=== PATIENT | male | born 1960 | race Two or more races ===

== ENCOUNTER 2025-01-26 22:34 | Emergency (ER) | payer MEDICAID, SELFPAY ==
[2025-01-26 22:34] VITALS: BMI 31.2
[2025-01-26 22:50] VITALS: BP 158/93; PULSE 102; RESP 16; TEMP 36.7; O2SAT 97
--- NOTE | 2025-01-26 22:50 | XR_ITS ---
Examination: CT abdomen and pelvis without contrast. Coronal 3-D reconstructions. Sagittal 2-D reconstructions. Date and time of exam:January 26, 2025 11:04 PM Comparison February 08, 2017 Indications: Hematuria and dysuria today CTDI: vol (mGy): 9.30 DLP: (mGycm): 565 Technique: Axial images of the abdomen have been obtained, 3 mm slice thickness Intravenous contrast material has not been administered. Low dose protocols were performed. One or more of the following dose reduction techniques were used; automated exposure control, adjustment of the mA and/or KV according to patient size, use of iterative reconstruction technique. Findings: No focal liver or splenic lesion Cholelithiasis No pancreatic mass Solid appearing mass in the upper pole right kidney 4.8 x 3.9 cm Right perinephric stranding No hydronephrosis or ureteral calculi No bowel obstruction or diverticulitis No blood in the urinary bladder Prostatomegaly AP dimension 5.6 cm Small fat-containing inguinal hernias Advanced disc narrowing at the lower 3 lumbar levels Impression: Recommend follow-up renal sonography or CT abdomen pelvis post intravenous contrast to confirm solid right renal tumor mass 4.8 cm Blood in the urinary bladder Significant prostatomegaly Cholelithiasis
--- NOTE | 2025-01-26 22:54 | PD.EDMALE ---
ED Male Genitalurinary RME/HPI General Chief complaint: Urogenital-Male Stated complaint: URINATING BLOOD Time Seen by Provider: 01/26/25 22:50 Arrival date/time: 01/26/25 22:34 64M with history of HTN and DM presents to ED with several days of dysuria/hematuria and feels like something is stuck, while urinating. Limitations: no limitations Related Data Home Medications ?Medication ?Instructions ?Recorded ?Confirmed simvastatin 10 mg tablet (Zocor) 10 mg PO HS #0 tabs 02/09/16 10/14/22 hydrochlorothiazide 25 mg tablet 25 mg PO DAILY 10/14/22 10/14/22 losartan 100 mg tablet 100 mg PO DAILY 10/14/22 10/14/22 metformin 500 mg tablet 500 mg PO BID 10/14/22 10/14/22 prednisone 20 mg tablet 20 mg PO DAILY 10/14/22 10/14/22 Previous Rx's ?Medication ?Instructions ?Recorded sulfamethoxazole 800 1 tab PO BID #21 tabs 10/24/22 mg-trimethoprim 160 mg tablet (Bactrim DS) Allergies Allergy/AdvReac Type Severity Reaction Status Date / Time No Known Allergies Allergy Verified 10/23/22 21:44 Review of Systems Review of Systems Systems Reviewed: All systems reviewed, normal except as documented Constitutional Constitutional: Reports system reviewed and no additional complaints, except as documented, Denies fever(s) and Denies headache(s) ENT Ears, Nose, Mouth, and Throat: Denies disequilibrium and Denies headache(s) Cardiovascular Cardiovascular: Reports system reviewed and no additional complaints, except as documented, Denies chest pain and Denies dyspnea Respiratory Respiratory: Reports system reviewed and no additional complaints, except as documented, Denies cough and Denies dyspnea Gastrointestinal Gastrointestinal: Reports system reviewed and no additional complaints, except as documented, Denies abdominal pain, Denies nausea and Denies vomiting Genitourinary Genitourinary: Reports as per HPI, Reports dysuria and Reports hematuria Neurologic Neurologic: Reports system reviewed and no additional complaints, except as documented, Denies confusion, Denies disequilibrium and Denies headache(s) Psychiatric Psychiatric: Denies confusion Past Medical History Past Medical History CARDIAC: Negative Congestive Heart Failure RESPIRATORY: Negative Chronic Obstructive Pulmonary Disease (COPD) GENITOURINARY: Negative Renal Disease ENDOCRINE: Positive Diabetes Mellitus Type 2; Negative Diabetes Mellitus Type 1 Social History SMOKING STATUS: Never smoker ED Exam General Limitations: Present no limitations General appearance: Present alert and in no apparent distress Head Head exam: Present atraumatic Eye Eye exam: Present normal appearance, PERRL and EOMI ENT ENT exam: Present normal exam, normal oropharynx and mucous membranes moist Neck Neck exam: Present normal inspection, full ROM and trachea midline Chest Chest inspection: Present normal inspection and symmetric chest wall rise Respiratory Respiratory exam: Present normal lung sounds bilaterally Cardiovascular Cardiovascular exam: Present regular rate, normal rhythm and normal heart sounds Abdominal Exam Abdominal exam: Present soft and normal bowel sounds Extremities Exam Extremities exam: Present normal inspection and full ROM Back Exam Back exam: Present normal inspection and full ROM Neurological Exam Neurological exam: Present alert, oriented X3 and CN II-XII intact Psychiatric Psychiatric exam: Present normal affect and normal mood Skin Skin exam: Present warm, dry, intact and normal color Course Quality Measures none Orders Category Date Time Status CT abdomen pelvis wo con Stat Exams 01/26/25 22:50 Completed CBC Stat Lab 01/27/25 00:45 Completed CMP [Comprehensive Metabolic Panel] Stat Lab 01/27/25 00:45 Completed Urinalysis, C/S if Indicated Stat Lab 01/26/25 23:10 Completed Vital Signs Vital signs: Vital Signs Temperature 98.1 F 01/26/25 22:50 Pulse Rate 102 H 01/26/25 22:50 Respiratory Rate 16 01/26/25 22:50 Blood Pressure 158/93 H 01/26/25 22:50 Pulse Oximetry (%) 97 01/26/25 22:50 Oxygen Delivery Method Room Air 01/26/25 22:50 O2 at 97% on RA and WNLs Urogenital - Male MDM Narrative MDM Narrative:: 64M with history of HTN and DM presents to ED with several days of dysuria/hematuria and feels like something is stuck, while urinating. Physical exam reveals no flank/ab tenderness. Patient is afebrile, calm, and alert. CT reveals R renal tumor. UA only blood. No leukocytosis or anemia. CMP unremarkable. Patient reveals strong family history of kidney cancer. Counseled to see PCP for additional evaluation including biopsy and referrals. Patient data External records reviewed:: [facility] previous records Clinical information provided by:: patient Social determinants that could affect healthcare access:: none Patient has the following chronic illnesses:: DM and HTN How is presenting disease/condition affected by chronic disease/condition?: exacerbated by Evaluation data The following diagnostics were reviewed and interpreted by me:: lab results and radiology exam(s) Lab and/or radiology exams considered but not ordered:: ordered Interpretation Summary: above Medications / Prescriptions Medications or Prescriptions considered but not ordered:: not ordered Medication administrations:: n/a Consultations Consultation(s) initiated? (list below): No Diagnosis Urogenital Male Differential Diagnosis: urinary tract infection, priapism, urethritis, epididymitis, genital herpes simplex, prostatitis, acute retention of urine, inguinal hernia and other (kidney stone, bladder cancer) Most likely diagnosis given after review of the tests above:: renal mass Admission Indicated Admission indicated?: not indicated Admission Request Was there a request for admission?: No Disposition Plan Disposition Plan: Discharge Discharge Attestation Discharge Attestation: The patient and all family members were given an opportunity to ask questions and understood the discharge instructions. Discharge instructions specifically effects, indications for sooner follow up or return to the emergency department, and the expected course of current diagnosis. Patient condition: Stable Discharge Plan Plan Patient Disposition: HOME (Self Care) Prescriptions/Referrals Prescriptions/Med Rec: No Action simvastatin [Zocor] 10 MG tablet 10 mg PO HS Qty: 0 metformin 500 mg tablet 500 mg PO BID hydrochlorothiazide 25 mg tablet 25 mg PO DAILY losartan 100 mg tablet 100 mg PO DAILY prednisone 20 mg tablet 20 mg PO DAILY Patient Comments: take 1 tablet by mouth once daily for 6 days sulfamethoxazole-trimethoprim [Bactrim DS] 800-160 mg tablet 1 tab PO BID Qty: 21 0RF Referrals: No Primary/Family,Physician [Primary Care Provider] - In 1 week Problem List Clinical Impression: Kidney mass Patient/Caregiver Discharge Instructions Additional Instructions: Please follow-up with PCP within 24-48 hours and return immediately if symptoms worsen. Follow-up with PCP for additional imaging and/or biopsy and/or referral. Print Language: Georgian Stand Alone Forms: Patient Portal Info Letter
[2025-01-26 23:28] LABS: Collection Type, Urine Clean Catch; Squamous Epithelial Cell,Urine 0 /hpf (0-5)
[2025-01-27 00:21] LABS: Bilirubin,Urine Negative (Negative); Blood,Urine 3+ (Negative); Clarity,Urine Turbid (Clear/Hazy); Color,Urine Red (Lt Yel-Yel); Culture Indicated,Urine Not Indicated; Glucose, Urine Negative (Negative); Ketones,Urine Negative (Negative); Leukocyte Esterase,Urine Negative (Negative); Nitrite,Urine Negative (Negative); PH,Urine 6.5 (5.0-7.0); Protein,Urine 3+ (Neg - Trace); RBC,Urine 90 /hpf (0-3); Specific Gravity,Urine 1.021 (1.001-1.035); Urobilinogen,Urine Negative mg/dL (0.0-1.0); WBC,Urine 2 /hpf (0-5)
[2025-01-27 00:52] LABS: Basophils % (Auto) 0 % (0-2.5); Eosinophils # (Auto) 0.3 Thou/mm3 (0.0-0.5); Eosinophils % (Auto) 2 % (0-10); Hematocrit 43.8 % (41.0-53.0); Hemoglobin 15.4 g/dL (13.5-16.0); Immature Granulocytes % (Auto) 0 % (0-0); Immature Granulocytes Auto 0.02 Thou/mm3 (0.00-0.00); Lymphocytes # (Auto) 1.6 Thou/mm3 (1.0-4.8); Lymphocytes % (Auto) 14 % (10-50); Mean Corpuscular HGB Conc 35.2 g/dl (31.0-37.0); Mean Corpuscular Volume 88 fL (80-100); Monocytes # (Auto) 0.8 Thou/mm3 (0.0-0.8); Monocytes % (Auto) 7 % (0-12); Neutrophils # (Auto) 8.8 Thou/mm3 (1.8-7.7); Neutrophils % (Auto) 76 % (37-80); Nucleated Red Blood Cell % 0 /100 WBC (0); Platelet Count 281 Thou/mm3 (140-440); RDW Standard Deviation 41.4 fL (35.1-43.9); Red Blood Count 4.97 Miln/mm3 (4.50-5.90); White Blood Count 11.6 Thou/mm3 (3.8-10.6)
[2025-01-27 01:10] LABS: Alanine Aminotransferase 47 U/L (10-49); Albumin, Serum 5.3 gm/dL (3.4-4.8); Albumin/Globulin Ratio 1.8 (1.2-2.2); Alkaline Phosphatase 71 U/L (46-116); Anion Gap 11 (7-16); Aspartate Amino Transferase 33 U/L (0-34); BUN/Creatinine Ratio 18 Ratio (12-20); Bilirubin,Total 0.5 mg/dL (0.3-1.2); Blood Urea Nitrogen 20 mg/dL (9-23); Calcium 10.9 mg/dL (8.3-10.6); Calcium (Corrected) 10.9 mg/dL (8.5-10.1); Carbon Dioxide 24.2 mMol/L (20.0-31.0); Chloride 107 mMol/L (98-107); Creatinine (Component) 1.1 mg/dL (0.6-1.3); Estimated Creatinine Clearance 82.1 mL/min (>60); Glucose 120 mg/dL (74-106); Osmolality,Calculated 286 (275-295); Potassium 3.4 mMol/L (3.4-5.1); Sodium 142 mMol/L (136-145); Total Protein 8.3 gm/dL (5.7-8.2); eGFR > 60 See Note
== END 2025-01-27 01:25 | disposition home or self-care (01) ==
PROVIDERS: Physician Assistant; Emergency Provider Emergency Medicine
DX: N28.89 Other specified disorders of kidney and ureter (principal); E11.9 Type 2 diabetes mellitus without complications; I10 Essential (primary) hypertension
CPT/HCPCS: 36415; 74176; 80053; 81001; 85025; 99284

== ENCOUNTER 2025-03-02 08:35 | Outpatient (RCR) | payer MEDICAID, SELFPAY ==
--- NOTE | 2025-03-02 12:32 | CTCCONSULT_ITS ---
Patient: CHICHO GUTIERREZ : 1960 MR#: [id number] Page 2 of 2 CONSULTATION NOTE DATE OF CONSULTATION: 03/02/2025 NAME: CHICHO GUTIERREZ ACCOUNT: [id number] : 1960 AGE: 64 REFERRING PHYSICIAN: Laurent Baum MD PRIMARY PHYSICIAN: Angel Jin MD REASON FOR VISIT: ONCOLOGY HISTORY: DIAGNOSIS: DATE OF DIAGNOSIS: STAGE/TNM: TREATMENT HISTORY: Care?Plan Start?Date Cycle Day Intent HISTORY OF PRESENT ILLNESS: Chief Complaint Right-sided kidney and pelvic pain with sharp pain moving to the groin area, blood in the urine History of Present Illness Chicho Gutierrez, a patient with a family history of kidney cancer, presents for evaluation of a recently discovered kidney mass. The patient reports experiencing sharp pain in the right side of the kidney and pelvic area, which occasionally radiates to the groin. He denies any burning sensation or diffi culty emptying his bladder. Mr. Gutierrez has a significant family history of kidney cancer, with four out of his six siblings having been diagnosed with the condition. One of his siblings from kidney cancer after a complex course involving partial kidney removal, dialysis, and eventual metastasis. The patient himself is scheduled to see urology. The patient reports a history of smoking for 8-10 years, less than a pack a day. He is also a recovering drug addict, specifically from methamphetamine use, and has been clean for 26 years. Mr. Gutierrez denies current alcohol use. In terms of urinary symptoms, the patient reports experiencing blood in the urine. He previously had issues with a large prostate but states that it is now under control with medication. Medical History - Kidney cancer, recently diagnosed - Benign prostatic hyperplasia, resolved with medication - Methamphetamine addiction, in recovery for 26 years Surgical History - Nephrectomy (kidney removal) for kidney cancer Medications and Supplements - Medication for large prostate - Resolved prostate issue Family History - Siblings: 6 total (including patient) - Siblings: 4 had kidney cancer - Sibling: One from kidney cancer, born with one kidney - Sister: Lashawn, present during the visit Social History - Substance Use: Former smoker (8-10 years, less than 1 pack/day); former methamphetamine user (clean for 26 years); no current alcohol use - Diet: Advised to adopt a plant-based diet, reduce red meat intake, increase water consumption, and eat more vegetables, fruits, and white meat - Exercise: Advised to engage in regular exercise, including 20-30 minutes of daily walking Review of Systems General: Negative for fever, chills, fatigue, muscle aches, appetite or weight changes. Genitourinary: Positive for sharp pain in right kidney and pelvic area, pain moving to groin area. Negative for burning sensation, difficulty emptying bladder. Neurological: Negative for headache, dizziness. OTHER MEDICAL HISTORY/CONDITIONS: Diabetes HTN Hyperlipidemia BPH Appendectomy?-?4yrs?ago? 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 Tobacco Use:?Quit - 25yrs - Smoked 5-6yrs less than 1 PPD ETOH Use:?Quit 25yrs ago - Meth daily for 8 yrs Drug?Note:?Socially Social?History?Note:?Lives?wtih? MEDICATIONS: 1. amlodipine - 10 mg 1 tab Daily 2. aspirin - 81 mg 1 tab Daily 3. Calcium Citrate + D with Mag - 507-61-1-125 zj-zl-ar-unit 1 tab Daily 4. hydrochlorothiazide - 25 mg 1 tab Daily 5. losartan - 100 mg 1 tab Daily 6. meloxicam - 15 mg 1 tab Daily 7. metFORMIN - 500 mg 1 tab Daily 8. simvastatin - 10 mg 1 tab Daily 9. tamsulosin - 0.4 mg 1 Capsule Daily Medications Last Reconciled by Lenore Briceno RN on 03/02/2025 ALLERGIES: No Known Drug Allergies REVIEW OF SYSTEMS: A complete 14-point review of systems was performed and is negative except as noted in interval history. PHYSICAL EXAMINATION: VITAL SIGNS: Temperature?98.9, B/P?160/69, Height?70.5?inches, Oxygen?Saturation?99% Weight?215?lbs PAIN: 0 - No pain ECOG Performance Status: 0 - Asymptomatic and fully active GENERAL APPEARANCE: Appears well, in no apparent distress, appropriately interactive. HEENT: Normocephalic, no temporal wasting, normal conjunctiva, no scleral icterus, normal hearing, lips without lesions, neck normal range of motion. CARDIOVASCULAR: Not assessed. PULMONARY: Normal respiratory effort, no respiratory distress or use of accessory muscles, speaking in full sentences, no tachypnea. EXTREMITIES: No pedal edema or cyanosis. SKIN: Normal skin appearance. NEUROLOGIC: Alert and oriented x4. PSHYCHIATRIC: Appropriate affect, mood normal, behavior normal, intact thought and speech. LABORATORY DATA: I have personally reviewed and interpreted each of the patient?s relevant lab tests, abnormal findings are below: Laboratory, Imaging, and Diagnostic Test Results - CT scan (01/26/2025): Solid mass in the upper pole of the right kidney, 4.8 by 3.9 cm - Urinalysis (01/26/2025): - Blood in urine: Positive - Protein in urine: Positive ASSESSMENT/PLAN: Chicho Gutierrez, male patient with family history of kidney cancer, presents with right-sided kidney and pelvic pain, and a 4.8 x 3.9 cm solid mass in the upper pole of the right kidney detected on CT scan. #1 Suspected Renal Cell Carcinoma Assessment: Patient presents with a 4.8 x 3.9 cm solid mass in the upper pole of the right kidney, detected on CT scan dated 01-26-2025. He reports sharp pain in the right side of the kidney and pelvic area, which radiates to the groin. There is a significant family history of kidney cancer, with 4 out of 6 siblings affected. The patient has a history of smoking (8-10 years, less than a pack a day) and past methamphetamine use (clean for 26 years), both of which are risk factors for kidney cancer. Urinalysis from 01-26-2025 showed hematuria and proteinuria, further supporting the suspicion of renal cell carcinoma. Given the clinical presentation, imaging findings, and family history, renal cell carci noma is the primary differential diagnosis. However, definitive diagnosis requires histopathological confirmation. Plan: - Order brain MRI to rule out metastasis - Order PET-CT scan for cancer staging - Order MRI of the kidney for detailed imaging of the mass - Refer patient to a higher-level center ([facility] or [place]) for specialist evaluation and possible nephrectomy - Order echocardiogram to assess cardiac function prior to potential surgery - Recommend increased water intake, plant-based diet with reduced red meat consumption, and regular exercise (20-30 minutes of walking daily) - Follow-up appointment in 4 weeks to review MRI and PET scan results - If cancer is confirmed and staged as 2 or 3, consider adjuvant immunotherapy post-surgery #2 Benign Prostatic Hyperplasia (BPH) Assessment: Patient reports a history of enlarged prostate, which was treated with medication. He currently denies any urinary symptoms, suggesting the condition is well-controlled. Plan: - Continue current BPH medication regimen (specific medication not mentioned in transcript) - Monitor for any recurrence of urinary symptoms ORDERS: Order # Description [id number] MRI + Brain + With W/O Contrast [id number] Initial PET/CT of Skull to Mid-Thigh [id number] Refer To: [id number] MD Follow Up 4 Week RETURN TO CLINIC: 4 weeks BILLING AND COMPLIANCE: I reviewed external records from providers outside my specialty as summarized above. I spent a total of 50 minutes on this patient?s care on the day of their visit excluding time spent related to any billed procedures. This time includes time spent with the patient as well as time spent documenting in the medical record, reviewing patients records and tests, obtaining history, placing orders, communicating with other healthcare professionals, counseling the patient, family or caregiver, and/or care coordination for the diagnoses above. Electronically Signed by: Petr Eddy MD T: 12:29 PM CC: PCP: Angel Jin Referring: Laurent Baum This document was completed utilizing speech recognition software. Grammatical errors, random word insertions, pronoun errors, and incomplete sentences are an occasional consequence of this system due to software limitations, ambient noise, and hardware issues. Any formal questions or concerns about the content, text or information contained within the body of this dictation should be directly addressed to the provider for clarification.
== END 2025-03-10 23:59 | disposition home or self-care (01) ==
LOC: SCTC 08:35
PROVIDERS: PCP Family Medicine; Referring Provider Family Medicine; Visit Provider Internal Medicine Hematology & Oncology
DX: N28.89 Other specified disorders of kidney and ureter (principal); R10.2 Pelvic and perineal pain; R31.9 Hematuria, unspecified; R80.9 Proteinuria, unspecified; N40.0 Benign prostatic hyperplasia without lower urinary tract symptoms; Z80.51 Family history of malignant neoplasm of kidney
CPT/HCPCS: 99213; G0463

== ENCOUNTER → 2025-03-26 | Outpatient (CLI) | payer MEDICAID, SELFPAY ==
--- NOTE | 2025-03-26 09:50 | XR_ITS ---
Examination: MRI abdomen with intravenous contrast TECHNIQUE: Multiple axial coronal MR abdomen images post intravenous ministration 19 cc gadolinium INDICATIONS: CT abdomen pelvis January 26, 2025 solid appearing mass upper pole right kidney 4.8 cm Date and time: March 26, 2025 1033 hours FINDINGS: No focal liver or splenic lesion No gallstones No pancreatic mass Enhancing upper pole right renal solid tumor mass 4.9 x 4.8 cm No tumor thrombus in the right renal vein or inferior vena cava No left renal mass lesion No ascites IMPRESSION: Upper pole enhancing right renal solid tumor mass 4.9 x 4.8 cm most consistent with renal cell carcinoma
--- NOTE | 2025-03-26 09:50 | XR_ITS ---
Examination: MRI pelvis with intravenous contrast TECHNIQUE: Multiple axial sagittal coronal MRI pelvis images post intravenous administration 19 cc gadolinium INDICATIONS: Solid tumor mass upper pole right kidney on CT abdomen pelvis January 26, 2025, staging Date and time: March 26, 2025 1033 hours FINDINGS: No common iliac and external iliac or common femoral lymphadenopathy No free fluid in the pelvis Prostatomegaly, mediolateral dimension 5.9 cm, suspicious for 3.9 cm nodule right lobe of the prostate Bladder intact IMPRESSION: Recommend transrectal prostate sonography follow-up to exclude large right prostate nodule
== END | disposition home or self-care (01) ==
PROVIDERS: PCP Family Medicine; Referring Provider Family Medicine; Visit Provider Family Medicine
DX: N28.89 Other specified disorders of kidney and ureter (principal); N42.89 Other specified disorders of prostate
CPT/HCPCS: 72196; 74182; A9579

== ENCOUNTER → 2025-04-16 | Outpatient (CLI) | payer MEDICAID, SELFPAY ==
--- NOTE | 2025-04-16 14:00 | ECHO_ITS ---
Transthoracic Echo Report Ht (in): 70 Wt (lb): 218 Exam Location: Echo Lab Status: Preadmit Cuff Setter: Jada Alamo Indications: Procedure Performed: BP: / HR: Technical Quality: Adequate MEASUREMENTS (Male / Female) Normal Values 2D ECHO LV Diastolic Diameter PLAX 3.9 cm 4.2 - 5.9 / 3.9 - 5.3 cm LV Systolic Diameter PLAX 2.4 cm IVS Diastolic Thickness 1.3 cm 0.6 - 1.0 / 0.6 - 0.9 cm LVPW Diastolic Thickness 1.1 cm 0.6 - 1.0 / 0.6 - 0.9 cm LV Relative Wall Thickness 0.6 LA Volume Index 23.4 cm?/m? 16 - 28 cm?/m? DOPPLER AV Peak Velocity 168.0 cm/s AV Peak Gradient 11.3 mmHg LVOT Peak Velocity 109.0 cm/s LVOT Peak Gradient 4.8 mmHg PV Peak Velocity 135.0 cm/s PV Peak Gradient 7.3 mmHg FINDINGS Left Ventricle Normal left ventricular size, wall thickness, systolic function with no obvious regional wall motion abnormalities.The ejection fraction is visually estimated at 65 %. Right Ventricle The right ventricle is normal in size and systolic function. The estimated right ventricular systolic pressure, 10 mmHg. Left Atrium The left atrium is normal by two-dimensional, color flow and Doppler imaging with no structural abnormalities, no thrombus formation present. Right Atrium The right atrium is normal by two-dimensional imaging, color flow and Doppler imaging with no structural abnormalities, no thrombus formation present. Atrial Septum The interatrial septum appears normal with no evidence of a shunt. Aorta The aorta is normal by two-dimensional, color flow and Doppler interrogation. Mitral Valve The mitral valve is normal by two-dimensional, color flow and Doppler interrogation. There is trace mitral regurgitation. Aortic Valve The aortic valve is trileaflet and normal by two-dimensional, color flow and Doppler interrogation. There is no significant aortic valve regurgitation. Tricuspid Valve The tricuspid valve is normal by two-dimensional, color flow and Doppler interrogation. There is trace tricuspid regurgitation. Pulmonic Valve The pulmonic valve is not well visualized. There is no significant pulmonic valve regurgitation. Vessels The pulmonary artery appears normal. The inferior vena cava pulmonary and hepatic veins appear normal. Pericardium The pericardium is normal by two-dimensional imaging. There is no significant pericardial effusion. CONCLUSIONS Indications: Kidney Cancer The transthoracic study is normal by two-dimensional, color flow imaging and Doppler interrogation. Normal left ventricular size and function. Approximate ejection fraction is 65%. Trace mitral and trace tricuspid regurgitation No wall motion abnormalities noted. Shaista Gonzalez (Electronically Signed) Final Date: 19 April 2025 17:03
== END | disposition home or self-care (01) ==
LOC: SDIM 13:44
PROVIDERS: PCP Family Medicine; Referring Provider Internal Medicine Hematology & Oncology; Visit Provider Internal Medicine Hematology & Oncology
DX: I08.1 Rheumatic disorders of both mitral and tricuspid valves (principal); C64.9 Malignant neoplasm of unspecified kidney, except renal pelvis
CPT/HCPCS: 93306

== ENCOUNTER 2025-04-26 10:16 | Outpatient (RCR) | payer MEDICAID, SELFPAY ==
--- NOTE | 2025-04-26 22:25 | CTCFLWUP_ITS ---
Patient: CHICHO GUTIERREZ : 1960 Page 4 of 5 FOLLOW UP NOTE DATE OF SERVICE: 04/26/2025 NAME: CHICHO GUTIERREZ ACCOUNT: [id number] : 1960 AGE: 64 INTERVAL HISTORY: Subjective: Chief Complaint Follow-up for stage one kidney cancer, delayed nephrectomy History of Present Illness Mr. Rehan Harrison presents for follow-up of stage one kidney cancer. He was initially seen two months ago for establishing care, at which time a brain MRI, PET-CT scan, kidney MRI, and echocardiogram were ordered, and a referral to [place] was made. The patient reports that he has not yet had his kidney cancer removed. He states that he has only completed an MRI of his abdomen since the last visit. His appointment at [facility] is not scheduled until September, which is causing a significant delay in his treatment. The patient mentions seeing a urologist about his bladder, who advised him to address the kidney issue first before returning for bladder concerns. The patient's kidney tumor measures 4.3 cm. He has not experienced any specific symptoms related to the cancer that he mentioned during this visit. The patient has not started any treatment to shrink the tumor, as no such option is available for his type of cancer at this stage. Review of Systems HEENT: Positive for mild headaches, blurry vision. Objective: Laboratory, Imaging, and Diagnostic Test Results - Brain MRI (February 2025) - PET-CT scan - MRI of the kidney - Echocardiogram - MRI of the abdomen - Kidney tumor size: 4.3 cm ONCOLOGY HISTORY: DIAGNOSIS: Renal cancer DATE OF DIAGNOSIS: 02/03/2024 STAGE/TNM: Stage 1 kidney cancer TREATMENT HISTORY: Care?Plan Start?Date Cycle Day Intent HISTORY OF PRESENT ILLNESS: Chief Complaint Right-sided kidney and pelvic pain with sharp pain moving to the groin area, blood in the urine History of Present Illness Chicho Gutierrez, a patient with a family history of kidney cancer, presents for evaluation of a recently discovered kidney mass. The patient reports experiencing sharp pain in the right side of the kidney and pelvic area, which occasionally radiates to the groin. He denies any burning sensation or diffi culty emptying his bladder. Mr. Gutierrez has a significant family history of kidney cancer, with four out of his six siblings having been diagnosed with the condition. One of his siblings from kidney cancer after a complex course involving partial kidney removal, dialysis, and eventual metastasis. The patient himself is scheduled to see urology. The patient reports a history of smoking for 8-10 years, less than a pack a day. He is also a recovering drug addict, specifically from methamphetamine use, and has been clean for 26 years. Mr. Gutierrez denies current alcohol use. In terms of urinary symptoms, the patient reports experiencing blood in the urine. He previously had issues with a large prostate but states that it is now under control with medication. Medical History - Kidney cancer, recently diagnosed - Benign prostatic hyperplasia, resolved with medication - Methamphetamine addiction, in recovery for 26 years Surgical History - Nephrectomy (kidney removal) for kidney cancer Medications and Supplements - Medication for large prostate - Resolved prostate issue Family History - Siblings: 6 total (including patient) - Siblings: 4 had kidney cancer - Sibling: One from kidney cancer, born with one kidney - Sister: Lashawn, present during the visit Social History - Substance Use: Former smoker (8-10 years, less than 1 pack/day); former methamphetamine user (clean for 26 years); no current alcohol use - Diet: Advised to adopt a plant-based diet, reduce red meat intake, increase water consumption, and eat more vegetables, fruits, and white meat - Exercise: Advised to engage in regular exercise, including 20-30 minutes of daily walking Review of Systems General: Negative for fever, chills, fatigue, muscle aches, appetite or weight changes. Genitourinary: Positive for sharp pain in right kidney and pelvic area, pain moving to groin area. Negative for burning sensation, difficulty emptying bladder. Neurological: Negative for headache, dizziness. 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 Tobacco Use:?Quit - 25yrs - Smoked 5-6yrs less than 1 PPD ETOH Use:?Quit 25yrs ago - Meth daily for 8 yrs Drug?Note:?Socially Social?History?Note:?Lives?wtih? MEDICATIONS: 1. amlodipine - 10 mg 1 tab Daily 2. aspirin - 81 mg 1 tab Daily 3. Calcium Citrate + D with Mag - 295-49-9-125 si-pq-qo-unit 1 tab Daily 4. hydrochlorothiazide - 25 mg 1 tab Daily 5. losartan - 100 mg 1 tab Daily 6. meloxicam - 15 mg 1 tab Daily 7. metFORMIN - 500 mg 1 tab Daily 8. simvastatin - 10 mg 1 tab Daily 9. tamsulosin - 0.4 mg 1 Capsule Daily Medications Last Reconciled by Shira Sarah MA on 04/26/2025 ALLERGIES: No Known Drug Allergies REVIEW OF SYSTEMS: A complete 14-point review of systems was performed and is negative except as noted in interval history. PHYSICAL EXAMINATION: VITAL SIGNS: Temperature?98, B/P?150/79, Oxygen?Saturation?97% Weight?214?lbs PAIN: 3 - Between mild and moderate pain ECOG Performance Status: 0 - Asymptomatic and fully active GENERAL APPEARANCE: Appears well, in no apparent distress, appropriately interactive. HEENT: Normocephalic, no temporal wasting, normal conjunctiva, no scleral icterus, normal hearing, lips without lesions, neck normal range of motion. CARDIOVASCULAR: Not assessed. PULMONARY: Normal respiratory effort, no respiratory distress or use of accessory muscles, speaking in full sentences, no tachypnea. EXTREMITIES: No pedal edema or cyanosis. SKIN: Normal skin appearance. NEUROLOGIC: Alert and oriented x4. PSHYCHIATRIC: Appropriate affect, mood normal, behavior normal, intact thought and speech. LABORATORY DATA: I have personally reviewed and interpreted each of the patient?s relevant lab tests, abnormal findings are below: Date ASSESSMENT/PLAN: Chicho Gutierrez, male patient with family history of kidney cancer, presents with right-sided kidney and pelvic pain, and a 4.8 x 3.9 cm solid mass in the upper pole of the right kidney detected on CT scan. #1 Suspected Renal Cell Carcinoma Assessment: Patient presents with a 4.8 x 3.9 cm solid mass in the upper pole of the right kidney, detected on CT scan dated 01-26-2025. He reports sharp pain in the right side of the kidney and pelvic area, which radiates to the groin. There is a significant family history of kidney cancer, with 4 out of 6 siblings affected. The patient has a history of smoking (8-10 years, less than a pack a day) and past methamphetamine use (clean for 26 years), both of which are risk factors for kidney cancer. Urinalysis from 01-26-2025 showed hematuria and proteinuria, further supporting the suspicion of renal cell carcinoma. Given the clinical presentation, imaging findings, and family history, renal cell carci noma is the primary differential diagnosis. However, definitive diagnosis requires histopathological confirmation. Biopsy or pathological diagnosis is needed in this case as it can lead to seeding and spread of cancer. Will wait for urology for surgery and staging based on imaging -MRI of the kidney revealed upper lobe mass and do not reveal any lymphadenopathy - Refer patient to a higher-level center ([facility] or [facility]) for specialist evaluation and possible nephrectomy-unfortunately patient underwent an event - Order echocardiogram to assess cardiac function prior to potential surgery- echo reviewed and is stable - Recommend increased water intake, plant-based diet with reduced red meat consumption, and regular exercise (20-30 minutes of walking daily) The tumor measures 4.3 cm. Clear cell cancer is suspected, but definitive diagnosis and staging require surgical removal of the tumor. There have been significant delays in obtaining surgical intervention, with the patient's appointment at [facility] not scheduled until September. The delay in treatment is concerning due to the potential for tumor growth. Plan: - Pursue urgent surgical intervention (nephrectomy) for tumor removal and definitive diagnosis - Advise patient to contact [facility] and [facility] daily to obtain an earlier surgical appointment - If unable to secure earlier appointment, instruct patient to present to emergency department for evaluation - Order brain MRI to rule out metastasis - Use mild headaches and blurry vision as indications to facilitate insurance approval - Explore potential for immunotherapy or ceritinib as post-surgical treatment options - Schedule follow-up appointment after surgical intervention to discuss pathology results and determine further management - Order brain MRI to rule out metastasis. Patient gives a history of headache. Need brain MRI to rule out mets - Order PET-CT scan for cancer staging-patient need to complete staging to rule out metastatic disease before being taken for surgery #2 Benign Prostatic Hyperplasia (BPH) Assessment: Patient reports a history of enlarged prostate, which was treated with medication. He currently denies any urinary symptoms, suggesting the condition is well-controlled. Plan: - Continue current BPH medication regimen (specific medication not mentioned in transcript) - Monitor for any recurrence of urinary symptoms ORDERS: Order # Description [id number] Follow Up 4 Week RETURN TO CLINIC: 4 weeks BILLING AND COMPLIANCE: I reviewed external records from providers outside my specialty as summarized above. I spent a total of 50 minutes on this patient?s care on the day of their visit excluding time spent related to any billed procedures. This time includes time spent with the patient as well as time spent documenting in the medical record, reviewing patients records and tests, obtaining history, placing orders, communicating with other healthcare professionals, counseling the patient, family or caregiver, and/or care coordination for the diagnoses above. Electronically Signed by: Petr Eddy MD T: 10:22 PM CC: PCP: Laurent Baum Referring: Laurent Baum This document was completed utilizing speech recognition software. Grammatical errors, random word insertions, pronoun errors, and incomplete sentences are an occasional consequence of this system due to software limitations, ambient noise, and hardware issues. Any formal questions or concerns about the content, text or information contained within the body of this dictation should be directly addressed to the provider for clarification.
== END 2025-05-10 23:59 | disposition home or self-care (01) ==
LOC: SCTC 10:16
PROVIDERS: PCP Family Medicine; Referring Provider Family Medicine; Visit Provider Internal Medicine Hematology & Oncology
DX: C64.1 Malignant neoplasm of right kidney, except renal pelvis (principal); Z80.51 Family history of malignant neoplasm of kidney; Z87.891 Personal history of nicotine dependence; N40.0 Benign prostatic hyperplasia without lower urinary tract symptoms
CPT/HCPCS: 99212; G0463

== ENCOUNTER 2025-06-02 15:53 | Outpatient (RCR) | payer MEDICAID, SELFPAY ==
--- NOTE | 2025-06-07 06:24 | CTCFLWUP_ITS ---
Patient: CHICHO GUTIERREZ : 1960 Page 4 of 5 FOLLOW UP NOTE DATE OF SERVICE: 06/02/2025 NAME: CHICHO GUTIERREZ ACCOUNT: [id number] : 1960 AGE: 64 INTERVAL HISTORY: Subjective: Chief Complaint Follow-up for stage one kidney cancer, delayed nephrectomy History of Present Illness Mr. Rehan Harrison presents for follow-up of stage one kidney cancer. He was initially seen two months ago for establishing care, at which time a brain MRI, PET-CT scan, kidney MRI, and echocardiogram were ordered, and a referral to [place] was made. The patient reports that he has not yet had his kidney cancer removed. He states that he has only completed an MRI of his abdomen since the last visit. His appointment at [place] is not scheduled until September, which is causing a significant delay in his treatment. The patient mentions seeing a urologist about his bladder, who advised him to address the kidney issue first before returning for bladder concerns. The patient's kidney tumor measures 4.3 cm. He has not experienced any specific symptoms related to the cancer that he mentioned during this visit. The patient has not started any treatment to shrink the tumor, as no such option is available for his type of cancer at this stage. Patient was seen at [facility] and is being planned by Dr. gonzalez for right partial nephrectomy Patient is also planned for dedicated prostate MRI as was noted to have prostate nodule review of Systems HEENT: Positive for mild headaches, blurry vision. Objective: Laboratory, Imaging, and Diagnostic Test Results - Brain MRI (February 2025) - PET-CT scan - MRI of the kidney - Echocardiogram - MRI of the abdomen - Kidney tumor size: 4.3 cm ONCOLOGY HISTORY: DIAGNOSIS: Renal cancer DATE OF DIAGNOSIS: 02/03/2024 STAGE/TNM: Stage 1 kidney cancer TREATMENT HISTORY: Care?Plan Start?Date Cycle Day Intent HISTORY OF PRESENT ILLNESS: Chief Complaint Right-sided kidney and pelvic pain with sharp pain moving to the groin area, blood in the urine History of Present Illness Chicho Gutierrez, a patient with a family history of kidney cancer, presents for evaluation of a recently discovered kidney mass. The patient reports experiencing sharp pain in the right side of the kidney and pelvic area, which occasionally radiates to the groin. He denies any burning sensation or diffi culty emptying his bladder. Mr. Gutierrez has a significant family history of kidney cancer, with four out of his six siblings having been diagnosed with the condition. One of his siblings from kidney cancer after a complex course involving partial kidney removal, dialysis, and eventual metastasis. The patient himself is scheduled to see urology. The patient reports a history of smoking for 8-10 years, less than a pack a day. He is also a recovering drug addict, specifically from methamphetamine use, and has been clean for 26 years. Mr. Gutierrez denies current alcohol use. In terms of urinary symptoms, the patient reports experiencing blood in the urine. He previously had issues with a large prostate but states that it is now under control with medication. Medical History - Kidney cancer, recently diagnosed - Benign prostatic hyperplasia, resolved with medication - Methamphetamine addiction, in recovery for 26 years Surgical History - Nephrectomy (kidney removal) for kidney cancer Medications and Supplements - Medication for large prostate - Resolved prostate issue Family History - Siblings: 6 total (including patient) - Siblings: 4 had kidney cancer - Sibling: One from kidney cancer, born with one kidney - Sister: Lashawn, present during the visit Social History - Substance Use: Former smoker (8-10 years, less than 1 pack/day); former methamphetamine user (clean for 26 years); no current alcohol use - Diet: Advised to adopt a plant-based diet, reduce red meat intake, increase water consumption, and eat more vegetables, fruits, and white meat - Exercise: Advised to engage in regular exercise, including 20-30 minutes of daily walking Review of Systems General: Negative for fever, chills, fatigue, muscle aches, appetite or weight changes. Genitourinary: Positive for sharp pain in right kidney and pelvic area, pain moving to groin area. Negative for burning sensation, difficulty emptying bladder. Neurological: Negative for headache, dizziness. 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 Tobacco Use:?Quit - 25yrs - Smoked 5-6yrs less than 1 PPD ETOH Use:?Quit 25yrs ago - Meth daily for 8 yrs Drug?Note:?Socially Social?History?Note:?Lives?wtih? MEDICATIONS: 1. amlodipine - 10 mg 1 tab Daily 2. aspirin - 81 mg 1 tab Daily 3. Calcium Citrate + D with Mag - 644-01-9-125 st-pu-fk-unit 1 tab Daily 4. hydrochlorothiazide - 25 mg 1 tab Daily 5. losartan - 100 mg 1 tab Daily 6. meloxicam - 15 mg 1 tab Daily 7. metFORMIN - 500 mg 1 tab Daily 8. simvastatin - 10 mg 1 tab Daily 9. tamsulosin - 0.4 mg 1 Capsule Daily Medications Last Reconciled by Yuko Marcelino MA on 06/02/2025 ALLERGIES: No Known Drug Allergies REVIEW OF SYSTEMS: A complete 14-point review of systems was performed and is negative except as noted in interval history. PHYSICAL EXAMINATION: VITAL SIGNS: PAIN: 0 - No pain ECOG Performance Status: 0 - Asymptomatic and fully active GENERAL APPEARANCE: Appears well, in no apparent distress, appropriately interactive. HEENT: Normocephalic, no temporal wasting, normal conjunctiva, no scleral icterus, normal hearing, lips without lesions, neck normal range of motion. CARDIOVASCULAR: Not assessed. PULMONARY: Normal respiratory effort, no respiratory distress or use of accessory muscles, speaking in full sentences, no tachypnea. EXTREMITIES: No pedal edema or cyanosis. SKIN: Normal skin appearance. NEUROLOGIC: Alert and oriented x4. PSHYCHIATRIC: Appropriate affect, mood normal, behavior normal, intact thought and speech. LABORATORY DATA: I have personally reviewed and interpreted each of the patient?s relevant lab tests, abnormal findings are below: Date ASSESSMENT/PLAN: Chicho Gutierrez, male patient with family history of kidney cancer, presents with right-sided kidney and pelvic pain, and a 4.8 x 3.9 cm solid mass in the upper pole of the right kidney detected on CT scan. #1 Suspected Renal Cell Carcinoma Assessment: Patient presents with a 4.8 x 3.9 cm solid mass in the upper pole of the right kidney, detected on CT scan dated 01-26-2025. He reports sharp pain in the right side of the kidney and pelvic area, which radiates to the groin. There is a significant family history of kidney cancer, with 4 out of 6 siblings affected. The patient has a history of smoking (8-10 years, less than a pack a day) and past methamphetamine use (clean for 26 years), both of which are risk factors for kidney cancer. Urinalysis from 01-26-2025 showed hematuria and proteinuria, further supporting the suspicion of renal cell carcinoma. Given the clinical presentation, imaging findings, and family history, renal cell carci noma is the primary differential diagnosis. However, definitive diagnosis requires histopathological confirmation. Biopsy or pathological diagnosis is needed in this case as it can lead to seeding and spread of cancer. Will wait for urology for surgery and staging based on imaging -MRI of the kidney revealed upper lobe mass and do not reveal any lymphadenopathy - Refer patient to a higher-level center ([facility] or [place]) for specialist evaluation and possible nephrectomy-unfortunately patient underwent an event - Order echocardiogram to assess cardiac function prior to potential surgery- echo reviewed and is stable - Recommend increased water intake, plant-based diet with reduced red meat consumption, and regular exercise (20-30 minutes of walking daily) The tumor measures 4.3 cm. Clear cell cancer is suspected, but definitive diagnosis and staging require surgical removal of the tumor. There have been significant delays in obtaining surgical intervention, with the patient's appointment at [place] not scheduled until September. The delay in treatment is concerning due to the potential for tumor growth. Plan: - Pursue urgent surgical intervention (nephrectomy) for tumor removal and definitive diagnosis Patient is being planned for partial nephrectomy at [facility] as well as further workup for prostate nodule - Order brain MRI to rule out metastasis - Use mild headaches and blurry vision as indications to facilitate insurance approval - Explore potential for immunotherapy or ceritinib as post-surgical treatment options - Schedule follow-up appointment after surgical intervention to discuss pathology results and determine further management - Order brain MRI to rule out metastasis. Patient gives a history of headache. Need brain MRI to rule out mets - Order PET-CT scan for cancer staging-patient need to complete staging to rule out metastatic disease before being taken for surgery #2 Benign Prostatic Hyperplasia (BPH) Assessment: Patient reports a history of enlarged prostate, which was treated with medication. He currently denies any urinary symptoms, suggesting the condition is well-controlled. Plan: - Continue current BPH medication regimen (specific medication not mentioned in transcript) Will wait for the results of MRI prostate as will be completed at [facility] ORDERS: Order # Description [id number] Follow Up 4 Week [id number] Comprehensive Metabolic Panel - 12 + CBC with Auto Diff RETURN TO CLINIC: I reviewed the diagnosis, prognosis, and recommended treatment/procedure options with the patient (and/or their legal sales representative business courses), including the potential benefits, risks, side effects and alternative therapies. We also discussed the option of no treatment and the possibility of clinical trial participation, if applicable. All questions were addressed, and they demonstrated understanding. They provided informed consent to proceed with the proposed plan of care. BILLING AND COMPLIANCE: I reviewed external records from providers outside my specialty as summarized above. I spent a total of 50 minutes on this patient?s care on the day of their visit excluding time spent related to any billed procedures. This time includes time spent with the patient as well as time spent documenting in the medical record, reviewing patients records and tests, obtaining history, placing orders, communicating with other healthcare professionals, counseling the patient, family or caregiver, and/or care coordination for the diagnoses above. Electronically Signed by: Petr Eddy MD T: 6:22 AM CC: PCP: Laurent Baum Referring: Laurent Baum This document was completed utilizing speech recognition software. Grammatical errors, random word insertions, pronoun errors, and incomplete sentences are an occasional consequence of this system due to software limitations, ambient noise, and hardware issues. Any formal questions or concerns about the content, text or information contained within the body of this dictation should be directly addressed to the provider for clarification.
== END 2025-06-10 23:59 | disposition home or self-care (01) ==
LOC: SCTC 15:53
PROVIDERS: PCP Family Medicine; Referring Provider Family Medicine; Visit Provider Internal Medicine Hematology & Oncology
DX: C64.1 Malignant neoplasm of right kidney, except renal pelvis (principal); Z87.891 Personal history of nicotine dependence; N40.0 Benign prostatic hyperplasia without lower urinary tract symptoms
CPT/HCPCS: 99212; G0463

== ENCOUNTER → 2025-08-10 | Outpatient (CLI) | payer MEDICAID, SELFPAY ==
--- NOTE | 2025-08-10 09:30 | ECHO_ITS ---
Transthoracic Echo Report Ht (in): 70 Wt (lb): 210 Exam Location: Echo Lab Status: Preadmit Caddy/Caddie Supervisor: Kelin Lobo Indications: Procedure Performed: BP: 171 / 108 HR: 85 MEASUREMENTS (Male / Female) Normal Values 2D ECHO LV Diastolic Diameter PLAX 4.6 cm 4.2 - 5.9 / 3.9 - 5.3 cm LV Systolic Diameter PLAX 2.9 cm IVS Diastolic Thickness 1.1 cm 0.6 - 1.0 / 0.6 - 0.9 cm LVPW Diastolic Thickness 1.2 cm 0.6 - 1.0 / 0.6 - 0.9 cm LV Relative Wall Thickness 0.5 LVOT Diameter 1.9 cm LA Volume Index 21.6 cm?/m? 16 - 28 cm?/m? Ascending Aorta Diameter 3.1 cm M-MODE AV Cusp Separation MM 1.3 cm DOPPLER AV Peak Velocity 165.0 cm/s AV Peak Gradient 10.9 mmHg AV Mean Gradient 5.0 mmHg AV Velocity Time Integral 29.1 cm LVOT Peak Velocity 94.6 cm/s LVOT Peak Gradient 3.6 mmHg LVOT Velocity Time Integral 17.8 cm LVOT Cardiac Index 1955.9 cm?/min?m? AV Area Cont Eq vti 1.7 cm? AV Area Cont Eq pk 1.6 cm? LV E' Lateral Velocity 10.0 cm/s LV E' Septal Velocity 7.9 cm/s TR Peak Velocity 154.5 cm/s TR Peak Gradient 9.5 mmHg PV Peak Velocity 128.0 cm/s PV Peak Gradient 6.6 mmHg FINDINGS Left Ventricle Normal left ventricular size, wall thickness, systolic function with no obvious regional wall motion abnormalities. Normal left ventricular diastolic filling pattern for age. The ejection fraction is visually estimated at 60-65%. Right Ventricle The right ventricle is normal in size and systolic function. Left Atrium The left atrial cavity size is mildly increased. Right Atrium The right atrium is normal by two-dimensional imaging, color flow and Doppler imaging with no structural abnormalities, no thrombus formation present. Atrial Septum The interatrial septum appears normal with no evidence of a shunt. Aorta The aorta is normal by two-dimensional, color flow and Doppler interrogation. Mitral Valve The mitral valve is normal by two-dimensional, color flow and Doppler interrogation. Trace mitral regurgitation. Aortic Valve Aortic valve sclerosis without stenosis Tricuspid Valve The tricuspid valve is normal by two-dimensional, color flow and Doppler interrogation.There is trace tricuspid valve regurgitation. Pulmonic Valve The pulmonic valve is not well visualized. There is no significant pulmonic valve regurgitation. Vessels The pulmonary artery appears normal. The inferior vena cava pulmonary and hepatic veins appear normal. Pericardium Trace pericardial effusion without cardiac tamponade CONCLUSIONS Indication: Maalignant neoplasm of unspecified kidney, except real pelvi Normal left ventricular size and function. Approximate ejection fraction is 60-65% No wall motion abnormalities Trace mitral and trace tricuspid regurgitation Shaista Gonzalez (Electronically Signed) Final Date: 10 August 2025 12:34
== END | disposition home or self-care (01) ==
LOC: SDIM 09:18
PROVIDERS: Referring Provider Internal Medicine Hematology & Oncology; Visit Provider Internal Medicine Hematology & Oncology
DX: I08.1 Rheumatic disorders of both mitral and tricuspid valves (principal); C64.9 Malignant neoplasm of unspecified kidney, except renal pelvis
CPT/HCPCS: 93306

== ENCOUNTER 2025-09-08 08:45 | Outpatient (RCR) | payer MEDICAID, SELFPAY ==
--- NOTE | 2025-08-16 14:39 | CTCFLWUP_ITS ---
Patient: CHICHO GUTIERREZ : 1960 Page 3 of 5 FOLLOW UP NOTE DATE OF SERVICE: 08/16/2025 NAME: CHICHO GUTIERREZ ACCOUNT: [id number] : 1960 AGE: 65 INTERVAL HISTORY: Right renal cell cancer status post nephrectomy History of Present Illness Mr. Bishop had large right kidney mass. Patient was seen at [facility] and underwent radical nephrectomy. Patient has healed well and here to follow-up review of Systems HEENT: Positive for mild headaches, blurry vision. Objective: Laboratory, Imaging, and Diagnostic Test Results - Brain MRI (February 2025) - PET-CT scan - MRI of the kidney - Echocardiogram - MRI of the abdomen - Kidney tumor size: 4.3 cm ONCOLOGY HISTORY: DIAGNOSIS: Renal cancer DATE OF DIAGNOSIS: 02/03/2024 STAGE/TNM: Stage 1 kidney cancer TREATMENT HISTORY: Care?Plan Start?Date Cycle Day Intent HISTORY OF PRESENT ILLNESS: Chief Complaint Right-sided kidney and pelvic pain with sharp pain moving to the groin area, blood in the urine History of Present Illness Chicho Gutierrez, a patient with a family history of kidney cancer, presents for evaluation of a recently discovered kidney mass. The patient reports experiencing sharp pain in the right side of the kidney and pelvic area, which occasionally radiates to the groin. He denies any burning sensation or diffi culty emptying his bladder. Mr. Gutierrez has a significant family history of kidney cancer, with four out of his six siblings having been diagnosed with the condition. One of his siblings from kidney cancer after a complex course involving partial kidney removal, dialysis, and eventual metastasis. The patient himself is scheduled to see urology. The patient reports a history of smoking for 8-10 years, less than a pack a day. He is also a recovering drug addict, specifically from methamphetamine use, and has been clean for 26 years. Mr. Gutierrez denies current alcohol use. In terms of urinary symptoms, the patient reports experiencing blood in the urine. He previously had issues with a large prostate but states that it is now under control with medication. Medical History - Kidney cancer, recently diagnosed - Benign prostatic hyperplasia, resolved with medication - Methamphetamine addiction, in recovery for 26 years Surgical History - Nephrectomy (kidney removal) for kidney cancer Medications and Supplements - Medication for large prostate - Resolved prostate issue Family History - Siblings: 6 total (including patient) - Siblings: 4 had kidney cancer - Sibling: One from kidney cancer, born with one kidney - Sister: Lashawn, present during the visit Social History - Substance Use: Former smoker (8-10 years, less than 1 pack/day); former methamphetamine user (clean for 26 years); no current alcohol use - Diet: Advised to adopt a plant-based diet, reduce red meat intake, increase water consumption, and eat more vegetables, fruits, and white meat - Exercise: Advised to engage in regular exercise, including 20-30 minutes of daily walking Review of Systems General: Negative for fever, chills, fatigue, muscle aches, appetite or weight changes. Genitourinary: Positive for sharp pain in right kidney and pelvic area, pain moving to groin area. Negative for burning sensation, difficulty emptying bladder. Neurological: Negative for headache, dizziness. 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 Tobacco Use:?Quit - 25yrs - Smoked 5-6yrs less than 1 PPD ETOH Use:?Quit 25yrs ago - Meth daily for 8 yrs Drug?Note:?Socially Social?History?Note:?Lives?wtih? MEDICATIONS: 1. amlodipine - 10 mg 1 tab Daily 2. aspirin - 81 mg 1 tab Daily 3. Calcium Citrate + D with Mag - 461-02-1-125 by-jd-fe-unit 1 tab Daily 4. hydrochlorothiazide - 25 mg 1 tab Daily 5. losartan - 100 mg 1 tab Daily 6. meloxicam - 15 mg 1 tab Daily 7. metFORMIN - 500 mg 1 tab Daily 8. simvastatin - 10 mg 1 tab Daily 9. tamsulosin - 0.4 mg 1 Capsule Daily Medications Last Reconciled by Yuko Bishop MD on 08/16/2025 ALLERGIES: No Known Drug Allergies REVIEW OF SYSTEMS: A complete 14-point review of systems was performed and is negative except as noted in interval history. PHYSICAL EXAMINATION: VITAL SIGNS: Temperature?99.4, B/P?171/89, Oxygen?Saturation?97% Weight?210?lbs PAIN: 0 - No pain ECOG Performance Status: 0 - Asymptomatic and fully active GENERAL APPEARANCE: Appears well, in no apparent distress, appropriately interactive. HEENT: Normocephalic, no temporal wasting, normal conjunctiva, no scleral icterus, normal hearing, lips without lesions, neck normal range of motion. CARDIOVASCULAR: Not assessed. PULMONARY: Normal respiratory effort, no respiratory distress or use of accessory muscles, speaking in full sentences, no tachypnea. EXTREMITIES: No pedal edema or cyanosis. SKIN: Normal skin appearance. NEUROLOGIC: Alert and oriented x4. PSHYCHIATRIC: Appropriate affect, mood normal, behavior normal, intact thought and speech. LABORATORY DATA: I have personally reviewed and interpreted each of the patient?s relevant lab tests, abnormal findings are below: Date ASSESSMENT/PLAN: Chicho Gutierrez, male patient with family history of kidney cancer, presents with right-sided kidney and pelvic pain, and a 4.8 x 3.9 cm solid mass in the upper pole of the right kidney detected on CT scan. # Renal cell cancer stage III Assessment: Patient presents with a 4.8 x 3.9 cm solid mass in the upper pole of the right kidney, detected on CT scan dated 01-26-2025. He reports sharp pain in the right side of the kidney and pelvic area, which radiates to the groin. There is a significant family history of kidney cancer, with 4 out of 6 siblings affected. The patient has a history of smoking (8-10 years, less than a pack a day) and past methamphetamine use (clean for 26 years), both of which are risk factors for kidney cancer. Urinalysis from 01-26-2025 showed hematuria and proteinuria, further supporting the suspicion of renal cell carcinoma. Given the clinical presentation, imaging findings, and family history, renal cell carci noma is the primary differential diagnosis. However, definitive diagnosis requires histopathological confirmation. Biopsy or pathological diagnosis is needed in this case as it can lead to seeding and spread of cancer. Will wait for urology for surgery and staging based on imaging Patient underwent radical nephrectomy Imaging was all completed at [facility] and do not have any imaging Patient says was told that she may have left-sided cancer to Get records from [facility] As patient have at least stage III cancer will need adjuvant pembrolizumab Get pathology reports from [facility] Patient will be started on adjuvant immunotherapy #2 Benign Prostatic Hyperplasia (BPH) Assessment: Patient reports a history of enlarged prostate, which was treated with medication. He currently denies any urinary symptoms, suggesting the condition is well-controlled. Plan: - Continue current BPH medication regimen (specific medication not mentioned in transcript) MRI showed prostate mass. Patient will be following up with [facility] regarding the same ORDERS: Order # Description [id number] MD Follow Up 4 Week [id number] Comprehensive Metabolic Panel - 12 + CBC with Auto Diff [id number] CBC + Comprehensive Metabolic Panel + [facility]A [id number] Lab Appointment [id number] Comprehensive Metabolic Panel - 12 + CBC with Auto Diff + MD Follow Up 4 Week [id number] Thyroid Stimulating Hormone + Assay Triiodothyronine (T3) [id number] Erythropoieten Level [id number] Follow Up Appointment [id number] CBC + Comprehensive Metabolic Panel + CEA [id number] Lab Appointment [id number] Follow Up Appointment [id number] CBC + Comprehensive Metabolic Panel + CEA [id number] Lab Appointment [id number] Follow Up Appointment [id number] CBC + Comprehensive Metabolic Panel + CEA [id number] Lab Appointment [id number] Follow Up Appointment [id number] CBC + Comprehensive Metabolic Panel + CEA [id number] Lab Appointment [id number] Follow Up Appointment [id number] CBC + Comprehensive Metabolic Panel + CEA [id number] Lab Appointment [id number] Follow Up Appointment [id number] CBC + Comprehensive Metabolic Panel + CEA [id number] Lab Appointment [id number] Follow Up Appointment [id number] CBC + Comprehensive Metabolic Panel + CEA [id number] Lab Appointment [id number] Follow Up Appointment [id number] CBC + Comprehensive Metabolic Panel + CEA [id number] Lab Appointment [id number] Follow Up Appointment [id number] CBC + Comprehensive Metabolic Panel + CEA [id number] Lab Appointment [id number] Follow Up Appointment [id number] CBC + Comprehensive Metabolic Panel + CEA [id number] Lab Appointment [id number] Follow Up Appointment [id number] CBC + Comprehensive Metabolic Panel + CEA [id number] Lab Appointment [id number] Follow Up Appointment [id number] CBC + Comprehensive Metabolic Panel + CEA [id number] Lab Appointment [id number] Follow Up Appointment [id number] CBC + Comprehensive Metabolic Panel + CEA [id number] Lab Appointment [id number] Follow Up Appointment [id number] CBC + Comprehensive Metabolic Panel + CEA [id number] Lab Appointment [id number] Follow Up Appointment [id number] CBC + Comprehensive Metabolic Panel + CEA [id number] Lab Appointment [id number] Follow Up Appointment [id number] CBC + Comprehensive Metabolic Panel + CEA [id number] Lab Appointment [id number] Follow Up Appointment [id number] CBC + Comprehensive Metabolic Panel + CEA [id number] Lab Appointment [id number] Follow Up Appointment [id number] CBC + Comprehensive Metabolic Panel + CEA [id number] Lab Appointment [id number] Follow Up Appointment [id number] CBC + Comprehensive Metabolic Panel + CEA [id number] Lab Appointment [id number] Follow Up Appointment [id number] CBC + Comprehensive Metabolic Panel + CEA [id number] Lab Appointment [id number] Follow Up Appointment [id number] CBC + Comprehensive Metabolic Panel + CEA [id number] Lab Appointment [id number] Follow Up Appointment [id number] CBC + Comprehensive Metabolic Panel + CEA [id number] Lab Appointment [id number] Follow Up Appointment [id number] CBC + Comprehensive Metabolic Panel + CEA [id number] Lab Appointment [id number] Follow Up Appointment [id number] CBC + Comprehensive Metabolic Panel + CEA [id number] Lab Appointment [id number] Follow Up Appointment [id number] CBC + Comprehensive Metabolic Panel + CEA [id number] Lab Appointment [id number] Follow Up Appointment [id number] CBC + Comprehensive Metabolic Panel + CEA [id number] Lab Appointment [id number] Follow Up Appointment RETURN TO CLINIC: I reviewed the diagnosis, prognosis, and recommended treatment/procedure options with the patient (and/or their legal commercial sales representative), including the potential benefits, risks, side effects and alternative therapies. We also discussed the option of no treatment and the possibility of clinical trial participation, if applicable. All questions were addressed, and they demonstrated understanding. They provided informed consent to proceed with the proposed plan of care. BILLING AND COMPLIANCE: I reviewed external records from providers outside my specialty as summarized above. I spent a total of 50 minutes on this patient?s care on the day of their visit excluding time spent related to any billed procedures. This time includes time spent with the patient as well as time spent documenting in the medical record, reviewing patients records and tests, obtaining history, placing orders, communicating with other healthcare professionals, counseling the patient, family or caregiver, and/or care coordination for the diagnoses above. Electronically Signed by: Petr Eddy MD T: 2:37 PM CC: PCP: Petr Eddy Referring: Petr Eddy This document was completed utilizing speech recognition software. Grammatical errors, random word insertions, pronoun errors, and incomplete sentences are an occasional consequence of this system due to software limitations, ambient noise, and hardware issues. Any formal questions or concerns about the content, text or information contained within the body of this dictation should be directly addressed to the provider for clarification.
[2025-09-08 10:20] LABS: Basophils # (Auto) 0.0 Thou/mm3 (0.0-0.2); Basophils % (Auto) 0 % (0-2.5); Eosinophils # (Auto) 0.8 Thou/mm3 (0.0-0.5); Eosinophils % (Auto) 11 % (0-10); Hematocrit 41.8 % (41.0-53.0); Hemoglobin 14.5 g/dL (13.5-16.0); Immature Granulocytes Auto 0.02 Thou/mm3 (0.00-0.00); Lymphocytes # (Auto) 1.4 Thou/mm3 (1.0-4.8); Lymphocytes % (Auto) 20 % (10-50); Mean Corpuscular HGB Conc 34.7 g/dl (31.0-37.0); Mean Corpuscular Hemoglobin 31.0 pg (25.0-35.0); Mean Corpuscular Volume 90 fL (80-100); Monocytes # (Auto) 0.5 Thou/mm3 (0.0-0.8); Monocytes % (Auto) 7 % (0-12); Neutrophils # (Auto) 4.3 Thou/mm3 (1.8-7.7); Neutrophils % (Auto) 62 % (37-80); Nucleated Red Blood Cell # 0.00 Thou/mm3 (0.00-0.00); Nucleated Red Blood Cell % 0 /100 WBC (0); Platelet Count 246 Thou/mm3 (140-440); RDW Standard Deviation 44.8 fL (35.1-43.9); Red Blood Count 4.67 Miln/mm3 (4.50-5.90); White Blood Count 7.0 Thou/mm3 (3.8-10.6)
[2025-09-08 10:48] LABS: Alanine Aminotransferase 44 U/L (10-49); Albumin, Serum 5.1 gm/dL (3.4-4.8); Albumin/Globulin Ratio 2.0 (1.2-2.2); Alkaline Phosphatase 69 U/L (46-116); Anion Gap 13 (7-16); Aspartate Amino Transferase 33 U/L (0-34); BUN/Creatinine Ratio 13 Ratio (12-20); Bilirubin,Total 0.7 mg/dL (0.3-1.2); Blood Urea Nitrogen 24 mg/dL (9-23); Calcium 10.4 mg/dL (8.3-10.6); Calcium (Corrected) 10.4 mg/dL (8.5-10.1); Carbon Dioxide 24.2 mMol/L (20.0-31.0); Chloride 106 mMol/L (98-107); Creatinine (Component) 1.8 mg/dL (0.6-1.3); Free T4 (Free Thyroxine) 1.08 ng/dL (0.89-1.76); Globulin 2.6 gm/dL (2.3-3.5); Glucose 94 mg/dL (74-106); Osmolality,Calculated 288 (275-295); Potassium 3.9 mMol/L (3.4-5.1); Sodium 143 mMol/L (136-145); Thyroid Stimulating Hormone 1.25 uIU/mL (0.55-4.78); Total Protein 7.7 gm/dL (5.7-8.2); eGFR 42 See Note
== END 2025-09-10 23:59 | disposition home or self-care (01) ==
LOC: SCTC 08:45
PROVIDERS: PCP Family Medicine; Referring Provider Internal Medicine Hematology & Oncology; Visit Provider Internal Medicine Hematology & Oncology
DX: Z51.11 Encounter for antineoplastic chemotherapy (principal); C64.1 Malignant neoplasm of right kidney, except renal pelvis; Z90.5 Acquired absence of kidney; R10.20 Pelvic and perineal pain unspecified side; Z80.51 Family history of malignant neoplasm of kidney; N40.0 Benign prostatic hyperplasia without lower urinary tract symptoms; R31.9 Hematuria, unspecified; Z87.891 Personal history of nicotine dependence
CPT/HCPCS: 80053; 84439; 84443; 85025; 96413; 99212; J3490; J9271; G0463

== ENCOUNTER 2025-09-29 07:47 | Outpatient (RCR) | payer MEDICAID, SELFPAY ==
--- NOTE | 2025-09-23 06:31 | CTCFLWUP_ITS ---
Patient: CHICHO GUTIERREZ : 1960 Page 2 of 2 FOLLOW UP NOTE DATE OF SERVICE: 09/22/2025 NAME: CHICHO GUTIERREZ ACCOUNT: [id number] : 1960 AGE: 65 INTERVAL HISTORY: Right renal cell cancer status post nephrectomy History of Present Illness Mr. Bishop had large right kidney mass. underwent radical nephrectomy Patient and is on maintenance adjuvant immunotherapy and tolerating well. Patient is a company tanker truck driver by profession and do not like missing his work and worried about his job. Patient is on 6 weekly doses of Keytruda ONCOLOGY HISTORY:?[facility] Oncology Hx? DIAGNOSIS: Renal cancer DATE OF DIAGNOSIS: 02/03/2024 STAGE/TNM: Stage 1 kidney cancer TREATMENT HISTORY: Care?Plan Start?Date Cycle Day Intent Pembrolizumab?alone 09/08/2025 1 21 Curative?(adjuvant) HISTORY OF PRESENT ILLNESS: Chief Complaint Right-sided kidney and pelvic pain with sharp pain moving to the groin area, blood in the urine History of Present Illness Chicho Gutierrez, a patient with a family history of kidney cancer, presents for evaluation of a recently discovered kidney mass. The patient reports experiencing sharp pain in the right side of the kidney and pelvic area, which occasionally radiates to the groin. He denies any burning sensation or diffi culty emptying his bladder. Mr. Gutierrez has a significant family history of kidney cancer, with four out of his six siblings having been diagnosed with the condition. One of his siblings from kidney cancer after a complex course involving partial kidney removal, dialysis, and eventual metastasis. The patient himself is scheduled to see urology. The patient reports a history of smoking for 8-10 years, less than a pack a day. He is also a recovering drug addict, specifically from methamphetamine use, and has been clean for 26 years. Mr. Gutierrez denies current alcohol use. In terms of urinary symptoms, the patient reports experiencing blood in the urine. He previously had issues with a large prostate but states that it is now under control with medication. Medical History - Kidney cancer, recently diagnosed - Benign prostatic hyperplasia, resolved with medication - Methamphetamine addiction, in recovery for 26 years Surgical History - Nephrectomy (kidney removal) for kidney cancer Medications and Supplements - Medication for large prostate - Resolved prostate issue Family History - Siblings: 6 total (including patient) - Siblings: 4 had kidney cancer - Sibling: One from kidney cancer, born with one kidney - Sister: Lashawn, present during the visit Social History - Substance Use: Former smoker (8-10 years, less than 1 pack/day); former methamphetamine user (clean for 26 years); no current alcohol use - Diet: Advised to adopt a plant-based diet, reduce red meat intake, increase water consumption, and eat more vegetables, fruits, and white meat - Exercise: Advised to engage in regular exercise, including 20-30 minutes of daily walking Review of Systems General: Negative for fever, chills, fatigue, muscle aches, appetite or weight changes. Genitourinary: Positive for sharp pain in right kidney and pelvic area, pain moving to groin area. Negative for burning sensation, difficulty emptying bladder. Neurological: Negative for headache, dizziness. 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 Tobacco Use:?Quit - 25yrs - Smoked 5-6yrs less than 1 PPD ETOH Use:?Quit 25yrs ago - Meth daily for 8 yrs Drug?Note:?Socially Social?History?Note:?Lives?wtih? MEDICATIONS: 1. amlodipine - 10 mg 1 tab Daily 2. aspirin - 81 mg 1 tab Daily 3. Calcium Citrate + D with Mag - 810-48-5-125 qp-qp-aj-unit 1 tab Daily 4. hydrochlorothiazide - 25 mg 1 tab Daily 5. losartan - 100 mg 1 tab Daily 6. meloxicam - 15 mg 1 tab Daily 7. metFORMIN - 500 mg 1 tab Daily 8. simvastatin - 10 mg 1 tab Daily 9. tamsulosin - 0.4 mg 1 Capsule Daily?Palabra Meds? Medications Last Reconciled by Yuko Bishop MD on 09/22/2025 ALLERGIES: No Known Drug Allergies REVIEW OF SYSTEMS: A complete 14-point review of systems was performed and is negative except as noted in interval history. PHYSICAL EXAMINATION:?CloneBlock PE? VITAL SIGNS: Temperature?98.4, B/P?148/75, Oxygen?Saturation?97% Weight?208?lbs (Change?since?09/08/25:?-2.6?lbs) PAIN: 0 - No pain ECOG Performance Status: 0 - Asymptomatic and fully active GENERAL APPEARANCE: Appears well, in no apparent distress, appropriately interactive. HEENT: Normocephalic, no temporal wasting, normal conjunctiva, no scleral icterus, normal hearing, lips without lesions, neck normal range of motion. CARDIOVASCULAR: Not assessed. PULMONARY: Normal respiratory effort, no respiratory distress or use of accessory muscles, speaking in full sentences, no tachypnea. EXTREMITIES: No pedal edema or cyanosis. SKIN: Normal skin appearance. NEUROLOGIC: Alert and oriented x4. PSHYCHIATRIC: Appropriate affect, mood normal, behavior normal, intact thought and speech. LABORATORY DATA: I have personally reviewed and interpreted each of the patient?s relevant lab tests, abnormal findings are below: Date 09/08/25 ??WHITE?BLOOD?COUNT?(Thou/mm3) 7.0 ??RED?BLOOD?COUNT?(Miln/mm3) 4.67 ??HEMOGLOBIN?(gm/dl) 14.5 ??HEMATOCRIT?(%) 41.8 ??PLATELET?COUNT?(Thou/mm3) 246 ??NEUTROPHILS?%,?AUTO?(%) 62 ??LYMPH?%,?AUTO?(%) 20 ??NEUTROPHILS,?AUTO?(Thou/mm3) 4.3 ??GLUCOSE,RANDOM?(mg/dL) 94 ??BLOOD?UREA?NITROGEN?(mg/dL) 24?H ??CREATININE?(mg/dL) 1.80?H ??SODIUM?(mmol/L) 143 ??POTASSIUM?(mmol/L) 3.9 ??CHLORIDE?(mmol/L) 106 ??CrCl?(CandG)?(ml/min) 48.35 ??AST/SGOT?(Unit/L) 33 ??ALT/SGPT?(Unit/L) 44 ??ALKALINE?PHOSPHATASE?(Unit/L) 69 ??BILIRUBIN,?TOTAL?(mg/dL) 0.7 ??PROTEIN?TOTAL?(gm/dl) 7.7 ??ALBUMIN,?SERUM?(gm/dl) 5.1?H ??GLOBULIN?(gm/dl) 2.6 ??ALBUMIN/GLOBULIN?RATIO 2.0 ??CALCIUM,?SERUM?(mg/dL) 10.4 ??CALCIUM?SERUM?(CORRECTED)?(mg/dL) 10.4?H ASSESSMENT/PLAN:?Mila Eddy Assessment/Plan? Chicho Gutierrez, male patient with family history of kidney cancer, presents with right-sided kidney and pelvic pain, and a 4.8 x 3.9 cm solid mass in the upper pole of the right kidney detected on CT scan. # Renal cell cancer stage III Assessment: Patient presents with a 4.8 x 3.9 cm solid mass in the upper pole of the right kidney, detected on CT scan dated 01-26-2025. Patient underwent nephrectomy and was diagnosed with renal cell cancer Patient is on adjuvant Keytruda and tolerating well Continue 1 year of treatment Patient also have left kidney mass Was stable on the last scan and unlikely cancer Patient advised to follow-up with nephrology for chronic kidney disease Advised to avoid NSAID aspirins until prescribed by physician and take low-salt diet #2 Benign Prostatic Hyperplasia (BPH) Assessment: Patient reports a history of enlarged prostate, which was treated with medication. He currently denies any urinary symptoms, suggesting the condition is well-controlled. Plan: - Continue current BPH medication regimen (specific medication not mentioned in transcript) MRI showed prostate mass. Patient will be following up with [facility] regarding the same ORDERS: Order # Description [id number] Follow Up Appointment [id number] CBC + Comprehensive Metabolic Panel + [facility] [id number] Lab Appointment [id number] Follow Up Appointment [id number] CBC + Comprehensive Metabolic Panel + [facility] [id number] Lab Appointment [id number] Follow Up Appointment [id number] CBC + Comprehensive Metabolic Panel + [facility] [id number] Lab Appointment [id number] Follow Up Appointment [id number] CBC + Comprehensive Metabolic Panel + [facility] [id number] Lab Appointment [id number] Follow Up Appointment [id number] CBC + Comprehensive Metabolic Panel + [facility] [id number] Lab Appointment [id number] Follow Up Appointment [id number] CBC + Comprehensive Metabolic Panel + [facility] [id number] Lab Appointment [id number] Follow Up Appointment [id number] CBC + Comprehensive Metabolic Panel + [facility] [id number] Lab Appointment [id number] Follow Up Appointment [id number] CBC + Comprehensive Metabolic Panel + [facility] [id number] Lab Appointment [id number] Follow Up Appointment [id number] CBC + Comprehensive Metabolic Panel + [facility] [id number] Lab Appointment [id number] Follow Up Appointment [id number] CBC + Comprehensive Metabolic Panel + [facility] [id number] Lab Appointment [id number] Follow Up Appointment [id number] CBC + Comprehensive Metabolic Panel + [facility] [id number] Lab Appointment [id number] Follow Up Appointment [id number] CBC + Comprehensive Metabolic Panel + [facility] [id number] Lab Appointment [id number] Follow Up Appointment [id number] CBC + Comprehensive Metabolic Panel + [facility] [id number] Lab Appointment [id number] Follow Up Appointment [id number] CBC + Comprehensive Metabolic Panel + [facility] [id number] Lab Appointment [id number] Follow Up Appointment [id number] CBC + Comprehensive Metabolic Panel + [facility] [id number] Lab Appointment [id number] Follow Up Appointment [id number] CBC + Comprehensive Metabolic Panel + [facility] [id number] Lab Appointment [id number] Follow Up Appointment [id number] CBC + Comprehensive Metabolic Panel + [facility] [id number] Lab Appointment [id number] Follow Up Appointment [id number] CBC + Comprehensive Metabolic Panel + [facility] [id number] Lab Appointment [id number] Follow Up Appointment [id number] CBC + Comprehensive Metabolic Panel + [facility] [id number] Lab Appointment [id number] Follow Up Appointment [id number] CBC + Comprehensive Metabolic Panel + [facility] [id number] Lab Appointment [id number] Follow Up Appointment [id number] CBC + Comprehensive Metabolic Panel + [facility] [id number] Lab Appointment [id number] Follow Up Appointment [id number] CBC + Comprehensive Metabolic Panel + [facility] [id number] Lab Appointment [id number] Follow Up Appointment [id number] CBC + Comprehensive Metabolic Panel + [facility] [id number] Lab Appointment [id number] Follow Up Appointment [id number] CBC + Comprehensive Metabolic Panel + [facility] [id number] Lab Appointment [id number] Follow Up Appointment [id number] CBC + Comprehensive Metabolic Panel + [facility] [id number] Lab Appointment [id number] Follow Up Appointment [id number] CBC + Comprehensive Metabolic Panel + [facility] [id number] Lab Appointment [id number] Follow Up Appointment RETURN TO CLINIC: I reviewed the diagnosis, prognosis, and recommended treatment/procedure options with the patient (and/or their legal outbound sales representative), including the potential benefits, risks, side effects and alternative therapies. We also discussed the option of no treatment and the possibility of clinical trial participation, if applicable. All questions were addressed, and they demonstrated understanding. They provided informed consent to proceed with the proposed plan of care. BILLING AND COMPLIANCE: I reviewed external records from providers outside my specialty as summarized above. I spent a total of 50 minutes on this patient?s care on the day of their visit excluding time spent related to any billed procedures. This time includes time spent with the patient as well as time spent documenting in the medical record, reviewing patients records and tests, obtaining history, placing orders, communicating with other healthcare professionals, counseling the patient, family or caregiver, and/or care coordination for the diagnoses above. Electronically Signed by: Petr Eddy MD T: 6:28 AM CC: PCP: Angel Jin Referring: Angel Jin This document was completed utilizing speech recognition software. Grammatical errors, random word insertions, pronoun errors, and incomplete sentences are an occasional consequence of this system due to software limitations, ambient noise, and hardware issues. Any formal questions or concerns about the content, text or information contained within the body of this dictation should be directly addressed to the provider for clarification.
[2025-09-29 08:20] LABS: Basophils # (Auto) 0.0 Thou/mm3 (0.0-0.2); Basophils % (Auto) 0 % (0-2.5); Eosinophils # (Auto) 0.7 Thou/mm3 (0.0-0.5); Eosinophils % (Auto) 7 % (0-10); Hematocrit 41.5 % (41.0-53.0); Hemoglobin 14.4 g/dL (13.5-16.0); Immature Granulocytes Auto 0.02 Thou/mm3 (0.00-0.00); Lymphocytes # (Auto) 1.2 Thou/mm3 (1.0-4.8); Lymphocytes % (Auto) 11 % (10-50); Mean Corpuscular HGB Conc 34.7 g/dl (31.0-37.0); Mean Corpuscular Hemoglobin 31.0 pg (25.0-35.0); Mean Corpuscular Volume 89 fL (80-100); Monocytes # (Auto) 0.6 Thou/mm3 (0.0-0.8); Monocytes % (Auto) 6 % (0-12); Neutrophils # (Auto) 8.4 Thou/mm3 (1.8-7.7); Neutrophils % (Auto) 76 % (37-80); Nucleated Red Blood Cell # 0.00 Thou/mm3 (0.00-0.00); Nucleated Red Blood Cell % 0 /100 WBC (0); Platelet Count 241 Thou/mm3 (140-440); RDW Standard Deviation 44.3 fL (35.1-43.9); Red Blood Count 4.64 Miln/mm3 (4.50-5.90); White Blood Count 11.0 Thou/mm3 (3.8-10.6)
[2025-09-29 08:46] LABS: Alanine Aminotransferase 36 U/L (10-49); Albumin, Serum 5.0 gm/dL (3.4-4.8); Albumin/Globulin Ratio 2.1 (1.2-2.2); Alkaline Phosphatase 74 U/L (46-116); Anion Gap 10 (7-16); Aspartate Amino Transferase 25 U/L (0-34); BUN/Creatinine Ratio 13 Ratio (12-20); Bilirubin,Total 0.4 mg/dL (0.3-1.2); Blood Urea Nitrogen 22 mg/dL (9-23); Calcium 10.2 mg/dL (8.3-10.6); Calcium (Corrected) 10.2 mg/dL (8.5-10.1); Carbon Dioxide 27.4 mMol/L (20.0-31.0); Chloride 104 mMol/L (98-107); Creatinine (Component) 1.7 mg/dL (0.6-1.3); Free T4 (Free Thyroxine) 1.06 ng/dL (0.89-1.76); Globulin 2.4 gm/dL (2.3-3.5); Glucose 114 mg/dL (74-106); Osmolality,Calculated 285 (275-295); Potassium 3.7 mMol/L (3.4-5.1); Sodium 141 mMol/L (136-145); Thyroid Stimulating Hormone 1.16 uIU/mL (0.55-4.78); Total Protein 7.4 gm/dL (5.7-8.2); eGFR 45 See Note
[2025-09-29 08:48] LABS: Carcinoembryonic Antigen 1.1 ng/mL (0.0-5.0)
== END 2025-10-10 23:59 | disposition home or self-care (01) ==
LOC: SCTC 07:47
PROVIDERS: PCP Family Medicine; Referring Provider Family Medicine; Visit Provider Internal Medicine Hematology & Oncology
DX: Z51.12 Encounter for antineoplastic immunotherapy (principal); C64.1 Malignant neoplasm of right kidney, except renal pelvis; Z90.5 Acquired absence of kidney; N40.0 Benign prostatic hyperplasia without lower urinary tract symptoms; N18.9 Chronic kidney disease, unspecified; N40.2 Nodular prostate without lower urinary tract symptoms
CPT/HCPCS: 80053; 82378; 84439; 84443; 85025; 96413; 99212; J3490; J9271; G0463

== ENCOUNTER 2025-10-20 09:51 | Outpatient (RCR) | payer MEDICAID, SELFPAY | END 2025-11-10 23:59 | disposition home or self-care (01) | LOC: SCTC 09:51 | PROVIDERS: PCP Family Medicine; Referring Provider Family Medicine; Visit Provider Internal Medicine Hematology & Oncology | DX: Z51.12 Encounter for antineoplastic immunotherapy (principal); C64.1 Malignant neoplasm of right kidney, except renal pelvis; Z90.5 Acquired absence of kidney; N40.0 Benign prostatic hyperplasia without lower urinary tract symptoms | CPT/HCPCS: 96413; J3490; J9271 ==